=== PATIENT | male | born 2000 | race Caucasian/White ===

== ENCOUNTER 2024-02-12 11:39 | Outpatient (AMB) | payer OTHER, SELFPAY ==
--- NOTE | 2024-02-12 11:55 | MHC.OFFWIV ---
Intake Vital Signs 02/12/24 11:58 Height 6 ft 1 in Weight 192 lb 6 oz BMI 25.4 BP 120/84 Blood Pressure Location Lt brachial Position Sitting Pulse 83 Pulse Source Pulse Oximeter Temp 98.5 F Temp Source Oral Pulse Oximetry (%) 98 Oxygen Delivery Method Room Air Intake Visit Reasons: [employer] WC lower back pain Intake Note: Pt presents to the office today for c/o lower back pain. Pt states he was moving something at work and felt pain after he finished moving the object. Allergies No Known Allergies Allergy (Verified 02/12/24 12:00) HPI HPI Comments History of Present Illness Details 23 y/o male patient who presents to walk in clinic with c/o low midline back pain. He was moving something heavy at work when he felt a sharp pain. Denies bladder or bowel symptoms. He has been taking Ibuprofen OTC with good relief. [facility] Social History (Updated 02/12/24 @ 12:02 by Tiara Stern CMA) e-Cigarette/Vaping Use: Currently Using Review of Systems Const All systems reviewed & are unremarkable except as noted in HPI and below Physical Exam Vital Signs: Last Vital Signs Temp 98.5 F 02/12/24 11:58 Pulse 83 02/12/24 11:58 BP 120/84 02/12/24 11:58 Pulse Ox 98 02/12/24 11:58 Oxygen Delivery Method Room Air 02/12/24 11:58 BMI result Body Mass Index 25.4 Const General: comfortable and no acute distress Nutritional Appearance: thin Orientation/consciousness: patient oriented x3 Back/Spine/Pelvis Back: back tenderness Thoracic/Lumbar Spine: thoracic and lumbar spine normal to inspection, thoraco-lumbar ROM normal, thoracic spinal tenderness and lumbar spinal tenderness Neuro General: patient oriented x3, gait normal and moves all extremities Psych Speech and movement: Normal speech and movement present Assessment & Plan Assessment & Plan (1) Back pain: Code(s): M54.9 - Dorsalgia, unspecified Qualifiers: Back pain location: low back pain Chronicity: acute Back pain laterality: midline Sciatica presence: without sciatica Qualified Code(s): M54.50 - Low back pain, unspecified Plan: - Use proper ergonomics while working - Continue with OTC pain medications for relief - Rest - Patient cleared to return to work. Coding Level of Care Code Est Pt Level 3 (20178) Diagnoses Acute midline low back pain without sciatica M54.50 Back pain location: low back pain Chronicity: acute Back pain laterality: midline Sciatica presence: without sciatica Time Spent (min) 15
[2024-02-12 11:58] VITALS: BP 120/84; PULSE 83; TEMP 36.9; O2SAT 98; BMI 25.4
== END 2024-02-12 13:44 | disposition home or self-care (01) ==
PROVIDERS: Visit Provider Nurse Practitioner Family
DX: M54.50 Low back pain, unspecified (principal)
CPT/HCPCS: 99213